=== PATIENT | female | born 1980 | race Caucasian/White ===

== ENCOUNTER → 2018-09-08 | Outpatient (CLI) | payer BC, OTHER ==
[2018-09-08] MEDS: IOHEXOL 300 MG/ML 75 ML VIAL. IV ONE (09:08)
[2018-09-08] MEDS: IOHEXOL 240 MG/ML 50ML VIAL. PO ONE (09:09)
--- NOTE | 2018-09-08 11:23 | RAD ---
CT of the abdomen and pelvis with contrast, 09/08/2018: HISTORY: Abdominal pain Multidetector CT imaging was performed following oral and IV administration of contrast. The liver is unremarkable. No gallbladder abnormality is seen. The pancreas is unremarkable. The spleen is of normal size. No renal or adrenal abnormality is detected. The abdominal aorta is unremarkable. No abdominal or pelvic adenopathy is seen. Decreased density centrally in the uterus is likely related to the stage of the patient's menstrual cycle. The ovaries are of normal size. A small thick-walled cyst is present in the left ovary, likely physiologic. There is a small amount of free fluid in the cul-de-sac. This amount of fluid can also be on a physiologic basis. The bowel loops are not dilated. Several small colonic diverticula are noted in the descending and sigmoid colon. No paracolonic inflammatory process is seen. The appendix is visualized and shows no abnormality. There is a suggestion of a small hiatal hernia. No free air is evident in the abdomen or pelvis. IMPRESSION: 1. Mild colonic diverticulosis. 2. Trace amount of free fluid in the cul-de-sac. 3. Probable small hiatal hernia. PQRS Compliance Statement: One or more of the following individualized dose reduction techniques were utilized for this examination: 1. Automated exposure control 2. Adjustment of the mA and/or kV according to patient size 3. Use of iterative reconstruction technique Electronically signed by: Brain Barrientos MD (09/08/2018 11:20 AM) [facility]
== END | disposition home or self-care (01) ==
LOC: CT 07:50
PROVIDERS: ATTEND Internal Medicine Gastroenterology
DX: K57.30 Diverticulosis of large intestine without perforation or abscess without bleeding (principal)
CPT/HCPCS: 74177; Q9967